=== PATIENT | female | born 1985 | race Caucasian/White ===

== ENCOUNTER 2016-08-21 13:54 | Emergency (ER) | payer OTHER | END 2016-08-21 14:18 | disposition home or self-care (01) | LOC: FER 13:54 | DX: K02.9 Dental caries, unspecified (principal); F17.210 Nicotine dependence, cigarettes, uncomplicated | CPT/HCPCS: 99282 ==

== ENCOUNTER 2016-09-16 15:17 | Emergency (ER) | payer OTHER | END 2016-09-16 16:08 | disposition home or self-care (01) | LOC: FER 15:17 | DX: K08.89 Other specified disorders of teeth and supporting structures (principal); F17.200 Nicotine dependence, unspecified, uncomplicated | CPT/HCPCS: 99282 ==

== ENCOUNTER 2016-11-13 14:15 | Emergency (ER) | payer OTHER ==
[2016-11-13 15:35] LABS: BASOPHIL 0.2 % (0-2); EOSINOPHIL 0.6 % (0-5); HCT 43.2 % (37.0-47.0); HGB 14.4 g/dl (12.5-16.0); LYMPHOCYTE 19.4 % (15-48); MCH 31.4 pg (25.0-31.0); MCHC 33.3 g/dL (32.0-36.0); MCV 94.1 fL (78.0-100.0); MPV 10.9 fL (6.0-9.5); NEUTROPHIL 75.8 % (41-80); PLT 203 K/uL (150-400); RBC 4.59 M/uL (4.20-5.40); RDW 12.5 % (11.5-14.0); WBC 10.2 K/uL (4.0-10.5)
[2016-11-13 15:35] LABS: BILIRUBIN NEGATIVE (NEGATIVE); BLOOD TRACE-INTACT Ery/uL (NEGATIVE); CLARITY CLEAR (CLEAR); COLOR YELLOW (YELLOW); GLUCOSE (U) NORMAL (NORMAL); KETONE (U) 1+ (SMALL) mg/dL (NEGATIVE); LEUKOCYTES NEGATIVE Leu/uL (NEGATIVE); NITRITE NEGATIVE (NEGATIVE); PROTEIN NEGATIVE (NEGATIVE); UROBILINOGEN 0.2 mg/dL (0.2-1.0)
[2016-11-13 15:45] LABS: BACTERIA TRACE; URINARY WBC RARE
[2016-11-13 15:54] LABS: ALBUMIN 4.6 g/dL (3.5-5.0); BILIRUBIN - TOTAL 0.2 mg/dL (0.1-1.0); CREATININE 0.7 mg/dL (0.5-1.0); GLOBULIN (CALCULATION) 3.1 g/dL (2.2-4.2); POTASSIUM 3.8 mmol/L (3.5-5.1); TOTAL PROTEIN 7.7 g/dL (6.4-8.3)
== END 2016-11-13 16:16 | disposition home or self-care (01) ==
LOC: FER 14:15
PROVIDERS: Nurse Practitioner Family
DX: R11.2 Nausea with vomiting, unspecified (principal); F17.210 Nicotine dependence, cigarettes, uncomplicated
CPT/HCPCS: 36415; 80053; 81001; 82150; 83690; 85025; J2405